=== PATIENT | female | born 1960 | race Caucasian/White ===

== ENCOUNTER 2016-06-03 21:41 | Emergency (ER) | payer MEDICARE, MEDICAID ==
[~2016-06-03 21:41] MED LIST: ACTOS DPS15 MG PO; ALPHAGAN P5 ML OU; ALPHAGAN-P5 ML OU; AMARYL DPS4 MG PO; AMARYL4 MG PO; AMBIEN DPS10 MG PO; AMBIEN10 MG PO; ASMANEX1 INH IH; ASTELIN NASAL S30 ML NS; ATIVAN-DPS0.5 MG PO; BENADRYL-DPS25 MG PO; BENADRYL25 MG PO; CARAFATE DPS1 GM PO; CARAFATE1 GM PO; CEPACOL SORE T1 EAC1 PO; CEPACOL SORE T1 EACH PO; CHERATUSSIN AC473 ML PO; CORTISPORIN CR7.5 GM; COSOPT EYE DROP10 ML OU; COSOPT PLUS DPS10 ML OU; CRESTOR10 MG PO; DAILY MULTIPLE1 EAC1 PO; DELTASONE DPS1 MG PO; DELTASONE DPS10 MG PO; DELTASONE DPS20 MG PO; DELTASONE DPS5 MG PO; DILAUDID2 MG PO; DILAUDID4 MG PO; DULCOLAX-DPS10 MG PR; DULERA 200/58.8 GM IH; DUONEB DPS3 ML IH; ERY-TAB250 MG PO; FIBERCON DPS625 MG PO; FIBERCON625 MG PO; FLONASE 0.05% D16 GM IN; FLONASE 0.05% D16 GM NS; FOLVITE-DPS1 MG PO; GLUCAGEN1 MG IM; GLUCAGON EMERGEN1 MG IM; GLUCAGON1 MG/ML IM; GLUCAGON1 MG/ML SQ; GLUCOPHAGE-DPS500 MG PO; GLUCOSE1 EACH PO; GLUTOSE 1537.5 GM PO; HUMALOG100 UNIT/1 SQ; IMODIUM DPS2 MG PO; KLOR-CON M2020 ME1 PO; KLOR-CON M2020 MEQ PO; LACRI-LUBE3.5 GM OU; LANTUS100 UNITS/ SQ; LASIX DPS20 MG PO; LASIX40 M1 PO; LEVEMIR100 UNIT/1 SQ; LIDODERM PATC1 PATCH TP; LIPITOR DPS10 MG PO; LIPITOR20 MG PO; MAALOX DPS30 ML PO; MACROBID DPS100 MG PO; MACROBID100 MG PO; MAG-OX400 MG PO; MAGOX 400400 MG PO; MARYS PO; METHOTREXATE2.5 MG PO; MIRALAX PACKET17 GM PO; MUCINEX600 MG PO; MYCOSTATIN PWD15 GM TP; NARCAN SQ; NEURONTIN DPS400 MG PO; NEURONTIN400 MG PO; NEURONTIN800 MG PO; NILSTAT SUSP DPS5 ML PO; NOVOLOG100 UNIT/2 SQ; NYSTATIN100000 UNI PO; PEPCID40 MG PO; PERCOCET 5 DPS1 TAB PO; PERCOCET 5-3251 EACH PO; PHENERGAN DPS25 MG PO; PHENERGAN6.25 MG/5 PO; PLAQUENIL DPS200 MG PO; POTASSIUM CHLO20 ME2 PO; PRILOSEC DPS20 MG PO; PROTONIX40 MG PO; PROVENTIL HFA6.7 GM IH; PULMICORT0.25 MG/2 IH; ROBAXIN-750750 MG PO; ROBITUSSIN100 MG/5 M PO; SENOKOT DPS8.6 MG PO; SENOKOT8.6 MG PO; SURFAK DPS240 MG PO; SURFAK240 MG PO; THERA1 EACH PO; TYLENOL DP650 MG/20. PO; TYLENOL DPS325 MG PO; TYLENOL325 MG PO; VITAMIN D1000 UNI1 PO; VITAMIN D31000 UNIT PO; XOPENEX HFA15 GM IH; ZAROXOLYN2.5 MG PO; ZYRTEC DPS10 MG PO; ZYRTEC10 MG PO
--- NOTE | 2016-06-04 13:07 | ER ---
ADMIT: 06/03/2016 RM/LOC: ER [facility] MR#: [id number] [address] [address] [place] [address] Emergency Room Report SEX: F AGE: 55 : 1960 DATE: 06/03/2016 HISTORY OF PRESENT ILLNESS: The patient is a 55-year-old female, who is legally blind with past medical history of COPD, asthma, osteoporosis, neurogenic bladder, hypertension, diabetes, T10 and T11 compression fracture, status post kyphoplasty last month, who came to the ER with chief complaint of low back pain. The patient states she went to the bathroom and did not use the walker, and while coming out suddenly, she felt a pop in the lower back and she fell on the face-down. Patient denies any head trauma or loss of consciousness. The patient states she could crawl back to the bed and was ambulating, but complains of penrnupi-ib-dbfgrn pain in the mid lower back in the lumbosacral area. The patient denies any new numbness tingling or weakness. PHYSICAL EXAMINATION: GENERAL: The patient was quite in room, in no obvious pain or distress and is not moving around, answering all the questions. Alert, oriented to person, place, and time and situation. HEENT: No obvious signs of trauma to the head and neck. No hemotympanum. No ecchymosis. No midline tenderness in the C-spine, no Bryan sign, no raccoon eyes. Pupils are 3 mm, but minimally reactive to light. LUNGS: Clear. HEART: Sounds are normal. ABDOMEN: Soft. MOTOR AND SENSORY: Decreased both motor and sensory right side comparing with the left side, which per patient is the baseline. BACK: There is olka-ab-pkmbvtzb tenderness in the midline lumbosacral area without any obvious step-offs. Pain was controlled. IMAGING: CT scan of the T-spine and L-spine did not show any new fractures or abnormalities. The patient does not have any new neurological symptoms or deficits. PLAN: The patient can be discharged to long term facility to be followed up by the primary care doctor. The patient was given the red flags, to come back if there is any new neurological deficit or if there is any new concerns and she understood it. The patient was discharged to nursing care. Lesia Toth MD/ romaine JOB #: [id number] CC: Charli La MD, Attending Physician Markus Bunn MD, Family Physician
== END 2016-06-04 01:05 | disposition home or self-care (01) ==
LOC: ER 21:41
DX: G89.18 Other acute postprocedural pain (principal); M54.5 Low back pain; I10 Essential (primary) hypertension; Z88.8 Allergy status to other drugs, medicaments and biological substances

== ENCOUNTER → 2016-06-28 | Outpatient (CLI) | payer MEDICARE, MEDICAID | END | disposition home or self-care (01) | LOC: RAD.S 11:30 | DX: M54.5 Low back pain (principal); M43.16 Spondylolisthesis, lumbar region; M48.06 Spinal stenosis, lumbar region ==

== ENCOUNTER 2016-08-15 01:56 | Emergency (ER) | payer MEDICARE, MEDICAID ==
--- NOTE | 2016-08-15 07:07 | ER ---
ADMIT: 08/15/2016 RM/LOC: ER [facility] MR#: [id number] [facility] [address] [place] [address] Emergency Room Report SEX: F AGE: 55 : 1960 DATE: 08/15/2016 The patient is a 55-year-old female, complaining of typical right retro- orbital eye pain associated with her optic neuritis. Denies fevers, chills, or injury. Closely followed by eye doctor and Dr. Bunn. Exam remarkable for nontoxic, afebrile female, slightly tender in the left eye. Tonometry 24- 28. The patient given 1 L of fluid, Zofran, Dilaudid, 800 mg of Solu-Medrol and 2 g magnesium with improvement. Transferred back to [facility]. Follow up Dr. Goldman as needed. Charli La MD/ modl JOB #: [id number] CC: Charli La MD, Attending Physician Markus Bunn MD, Family Physician Markus Bunn MD
== END 2016-08-15 05:00 | disposition home or self-care (01) ==
LOC: ER 01:56
DX: H57.11 Ocular pain, right eye (principal); I10 Essential (primary) hypertension; E11.9 Type 2 diabetes mellitus without complications; J45.909 Unspecified asthma, uncomplicated; F41.9 Anxiety disorder, unspecified; Z90.710 Acquired absence of both cervix and uterus; Z88.8 Allergy status to other drugs, medicaments and biological substances; Z79.899 Other long term (current) drug therapy; Z79.51 Long term (current) use of inhaled steroids; Z79.84 Long term (current) use of oral hypoglycemic drugs; Z79.4 Long term (current) use of insulin

== ENCOUNTER 2016-09-14 00:46 | Emergency (ER) | payer MEDICARE, MEDICAID ==
--- NOTE | 2016-09-16 13:14 | ER ---
ADMIT: 09/14/2016 RM/LOC: ER [facility] MR#: [id number] [address] [address] [place] [address] Emergency Room Report SEX: F AGE: 55 : 1960 DATE: 09/14/2016 HISTORY OF PRESENT ILLNESS: The patient is a 55-year-old female with past medical history of chronic back pain and chronic neck pain and legally blind and arthritis and chronic bilateral hand pain, came to the ER with right hand pain. The patient states she ran out of her Percocet and the right hand pain increased today for the last few hours. The patient states pain is moderate- to-severe in severity and happened at home. The patient denies any fall or trauma or any bite. The patient denies any fever too. PHYSICAL EXAMINATION: VITAL SIGNS: The patient is afebrile. GENERAL: In no obvious distress. HEAD and NECK: Noncontributory. CHEST: Noncontributory. ABDOMEN: Noncontributory. EXTREMITIES: On the right hand, there is no swelling and there is no erythema. The patient has mild tenderness in the 2nd and 3rd knuckle area. The patient has normal range of motion. The rest of the physical exam is noncontributory. EMERGENCY ROOM COURSE: Pain was controlled. The patient was re-examined, did not develop any new symptoms. The patient has had close followup with the primary doctor and was discharged to home with followup with the primary doctor as needed. Reji Toth MD/ romaine JOB #: [id number] CC: Reji Toth MD, Attending Physician Markus Bunn MD, Family Physician
== END 2016-09-14 02:11 | disposition home or self-care (01) ==
LOC: ER 00:46
DX: M79.641 Pain in right hand (principal); M19.90 Unspecified osteoarthritis, unspecified site; M54.9 Dorsalgia, unspecified; M54.2 Cervicalgia; G89.29 Other chronic pain; H54.8 Legal blindness, as defined in USA; I10 Essential (primary) hypertension; E11.9 Type 2 diabetes mellitus without complications; Z90.49 Acquired absence of other specified parts of digestive tract; Z88.1 Allergy status to other antibiotic agents; Z88.6 Allergy status to analgesic agent; Z79.899 Other long term (current) drug therapy; Z79.4 Long term (current) use of insulin

== ENCOUNTER 2016-09-19 15:59 | Emergency (ER) | payer MEDICARE, MEDICAID ==
--- NOTE | 2016-09-25 15:44 | ER ---
ADMIT: 09/19/2016 RM/LOC: [facility] MR#: [id number] [address] [address] [place] [address] Emergency Room Report SEX: F AGE: 55 : 1960 DATE: 09/19/2016 HISTORY OF PRESENT ILLNESS: The patient is a 55-year-old female, presents to the emergency room via ambulance with dizziness and states she is disoriented. This has been going on for 12 hours. She says she got very weak in her legs. REVIEW OF SYSTEMS: Otherwise, negative except for anxiety and depression. PAST MEDICAL HISTORY: Diabetes type 2, reflux, rheumatoid arthritis, diabetic neuropathy, pulmonary heart disease. MEDICATIONS: See T-sheet. ALLERGIES: SEE T-SHEET. THIS IS A FEMALE, WHO STATES SHE HAS LOST A LOT OF WEIGHT AND DECREASING THE USE OF HER INSULIN TO A LOWER DOSE. SHE HAS BEEN TAKING DIURETICS BECAUSE OF SWELLING IN HER LEGS. PHYSICAL EXAMINATION: VITAL SIGNS: Blood pressure 133/56, heart rate is 93, respirations 14, temperature 99.4. GENERAL: She is alert, wearing sunglasses, mildly anxious. HEENT: Normal inspection. NECK: Supple. RESPIRATIONS: No distress. EXTREMITIES: Well perfused. ABDOMEN: Obese. No tenderness. SKIN: Good color and turgor. EXTREMITIES: No edema noted in the extremities. IMAGING: The head CT, negative. Done because of reported confusion, but not ADMIT: 09/19/2016 RM/LOC: [facility] MR#: [id number] [address] [address] [place], [place] [id number] Emergency Room Report SEX: F AGE: 55 : 1960 really neurological issues. Chest x-ray, normal. LABORATORY DATA: CBC within normal limits at 10.7 of white count and platelets of 216. Her chemistry potassium shows a 3.3, glucose 157, creatinine is 1.3, hyaline cast in the urine at 26, GFR 47, BNP 129. CLINICAL IMPRESSION: 1. Mild dehydration. 2. Mild hypokalemia. 3. Myalgia, generalized. The patient discharged back to intermediate. Given [place] as she requested something for pain, and potassium 20 mEq p.o. JANY Holman / Mono Wolf MD / modl JOB #: [id number] CC: Mono Wolf MD, Attending Physician UNKNOWN, Family Physician
== END 2016-09-19 20:28 | disposition home or self-care (01) ==
LOC: ER 15:59
DX: R42 Dizziness and giddiness (principal); E86.0 Dehydration; E87.6 Hypokalemia; M79.1 Myalgia; E11.40 Type 2 diabetes mellitus with diabetic neuropathy, unspecified; I27.9 Pulmonary heart disease, unspecified; F41.9 Anxiety disorder, unspecified; E78.5 Hyperlipidemia, unspecified; Z90.49 Acquired absence of other specified parts of digestive tract; Z90.710 Acquired absence of both cervix and uterus; Z79.84 Long term (current) use of oral hypoglycemic drugs; Z79.899 Other long term (current) drug therapy

== ENCOUNTER → 2016-10-02 | Outpatient (CLI) | payer MEDICARE, MEDICAID | END | disposition home or self-care (01) | LOC: RAD.S 15:39 | DX: M79.641 Pain in right hand (principal); M06.9 Rheumatoid arthritis, unspecified; M19.041 Primary osteoarthritis, right hand; M85.641 Other cyst of bone, right hand; Z89.021 Acquired absence of right finger(s) ==